=== PATIENT | female | born 1940 | race Caucasian/White ===

== ENCOUNTER → 2018-02-01 14:09 | Outpatient (CLI) | payer MEDICARE, OTHER, SELFPAY ==
[2018-02-01 15:10] LABS: Add Manual Diff / Slide Review NO; Eosinophils Percent Auto 2.3 % (2-4); Hematocrit 40.1 % (36-46); Hemoglobin 13.4 g/dL (12.0-16.0); Lymphocytes Percent Auto 21.7 % (25-40); Mean Corpuscular HGB Conc 33.5 % (30-36); Mean Corpuscular Hemoglobin 30.9 PG (26-34); Mean Corpuscular Volume 92.1 fL (80-100); Monocytes Percent Auto 5.7 % (3-14); Neutrophils Absolute Auto 5300 /uL (3000-5900); Neutrophils Percent Auto 69.3 % (50-75); Platelet Count 242 X10^3/uL (150-400); Red Blood Cell Count 4.35 X10^6/uL (4.0-5.2); Red Cell Distribution Width 12.9 % (11.6-14.8); White Blood Cell Count 7.7 X10^3/uL (4.5-11.0)
[2018-02-01 15:27] LABS: Alanine Aminotransferase 20 IU/L (9-52); Albumin 4.8 g/dL (3.5-5.0); Alkaline Phosphatase 62 U/L (38-126); Aspartate Aminotransferase 21 IU/L (14-36); BUN Creatinine Ratio 12.9 (6-22); Bilirubin Total 0.5 mg/dL (0.2-1.3); Blood Urea Nitrogen 9 mg/dL (7-17); Calcium 9.5 mg/dL (8.4-10.2); Carbon Dioxide 27 mmol/L (22-32); Chloride 95 mmol/L (98-107); Creatine Kinase 43 U/L (30-135); Estimated Glomerular Filt Rate > 60.0 mL/min (>60); Globulin 2.4 g/dL (1.7-4.1); Glucose 95 mg/dL (80-110); HEMOLYSIS < 15 (0-50); Potassium 4.6 mmol/L (3.4-5.1); Sodium 135 mmol/L (137-145); Total Protein 7.2 g/dL (6.3-8.2)
[2018-02-01 15:29] LABS: Hemoglobin A1C% w Est Avg Glu 5.3 % (4.0-6.0)
[2018-02-01 15:31] LABS: Erythrocyte Sedimentation Rate 6 MM/HR (0-20)
[2018-02-01 15:55] LABS: TSH w/ Reflex to FT4 1.05 uIU/mL (0.47-4.68)
[2018-02-01 16:13] LABS: Vitamin B12 453 pg/mL (239-931)
== END ==
PROVIDERS: Visit Provider Family Medicine
DX: R63.4 Abnormal weight loss (principal); M79.2 Neuralgia and neuritis, unspecified; M54.2 Cervicalgia; R51 Headache
CPT/HCPCS: 36415; 80053; 82550; 82607; 83036; 84443; 85025; 85651

== ENCOUNTER → 2018-03-14 13:35 | Outpatient (CLI) | payer MEDICARE, OTHER, SELFPAY ==
--- NOTE | 2018-03-14 13:38 | DI.MRI.S_ITS ---
PROCEDURE: MR HEAD/BRAIN WO CON INDICATIONS: Dizziness Nausea TECHNIQUE: Non-contrast axial T1 spin echo, axial T2 fast spin echo, sagittal and axial FLAIR, coronal T2 fast spin echo, axial gradient echo, axial diffusion and ADC through the brain. COMPARISON: [facility], MR, MR IAC'S MASTOIDS W&WO CON, 07/19/2016, 16:04. [facility], MR, MR BRAIN WITHOUT CONTRAST, 07/13/2017, 16:05. FINDINGS: Image quality: Excellent. CSF spaces: Ventricles appear symmetric in size and shape. Basal cisterns are patent. No extra-axial fluid collections. Brain: No intracranial bleeds or mass effects. There is cerebral volume loss for age. There are periventricular and deep white matter chronic small vessel ischemic changes. Brainstem appears normal. Diffusion-weighted images show no acute ischemic insults. No chronic ischemic insults. Normal intravascular flow voids are present. Focus of old ischemia is noted within the right posterior limb of the right internal capsule. Skull and face: Calvarial bone marrow is normal in signal. Orbits are normal. Sinuses: Sinuses demonstrate minimal pansinus mucosal thickening. There is fluid within the mastoid air cells bilaterally, mild on the left and mild to moderate on the right. It appears minimally more prominent on the right compared to prior exam. IMPRESSION: 1. No acute intracranial process. 2. Periventricular, subcortical and corpus callosal white matter foci as above. Previously noted these could be related to chronic microvascular ischemic changes. However, in appropriate clinical setting, demyelinating disease cannot be excluded. It is noted that prior exam raised suggestion of Susac's disease. However, known associated clinical symptoms according to clinical history notes do not appear to be present. 3. Persistent fluid within mastoid air cells bilaterally, slightly more prominent when compared to prior exam. Dictated by: Renetta Sheehan M.D. on 03/14/2018 at 16:28 Approved by: Renetta Sheehan M.D. on 03/14/2018 at 16:36
== END ==
PROVIDERS: PCP Internal Medicine; Visit Provider Specialist
DX: G43.909 Migraine, unspecified, not intractable, without status migrainosus (principal); R11.0 Nausea
CPT/HCPCS: 70551; 99213